=== PATIENT | female | born 1970 | race African-American/Black ===

== ENCOUNTER 2025-05-15 14:57 | Emergency (ER) | payer BC ==
[~2025-05-15] VITALS: Ht 162.6 cm; Wt 96.0 kg
[2025-05-15 15:01] VITALS: O2SAT 100
[2025-05-15] MEDS: MORPHINE SULFATE 4 MG/ML INJ (FOR IV/IM USE) IV ONE (16:00)
[2025-05-15 16:08] LABS: BASOPHILS % 0.6 % (0.0-2.0); EOSINOPHILS % 2.1 % (0.0-5.0); HEMATOCRIT. 39.3 % (36.0-48.0); HEMOGLOBIN. 13.2 g/dL (12.0-16.0); LYMPHOCYTES % 29.4 % (20.0-50.0); MEAN PLATELET VOLUME 7.9 fl (7.4-10.4); MONOCYTES % 5.6 % (2.0-8.0); NEUTROPHILS % 62.3 % (40.0-76.0); PLATELET 332 x1000/uL (130-400); RED BLOOD CELL COUNT 4.29 mill/uL (4.2-5.4); RED CELL DISTRIBUTION WIDTH 14.0 % (11.6-14.6)
[2025-05-15 16:18] LABS: CREATININE 0.8 mg/dL (0.6-1.0)
[2025-05-15 16:19] LABS: TROPONIN I HIGH SENSITIVITY < 4 ng/L (3.0-34); UREA NITROGEN BLOOD 10 mg/dL (9-23)
[2025-05-15 16:20] LABS: ASPARTATE AMINOTRANSFERASE 19 IU/L (<34); BILIRUBIN DIRECT 0.1 mg/dL (<=3.0)
[2025-05-15 16:21] LABS: BILIRUBIN TOTAL 0.5 mg/dL (0.1-1.0); PROTEIN TOTAL 7.6 g/dL (6.0-8.3)
[2025-05-15 16:30] LABS: INR 1.0
[2025-05-15] MEDS: ONDANSETRON HCL 4MG/2ML INJ IV ONE (16:37)
[2025-05-15] MEDS: FAMOTIDINE 20MG/2ML VIAL IV ONE (16:38)
[2025-05-15] MEDS: SODIUM CHLORIDE 0.9% 1,000 ML IV ONE (16:38)
[2025-05-15] MEDS ORDERED: FAMO-135 PO (18:43)
[2025-05-15 18:51] VITALS: BP 161/77; PULSE 58; RESP 12; TEMP 36.7; O2SAT 100
== END 2025-05-15 19:10 | disposition home or self-care (01) ==
LOC: ER 14:57 → CMPBEDREQ 05-16 07:30
DX: K30 Functional dyspepsia (principal); I11.9 Hypertensive heart disease without heart failure; Z90.710 Acquired absence of both cervix and uterus
CPT/HCPCS: 80076; 80048; 83690; 85025; 85610; 85730; 84484; 36415; 71045; 74176; 76705; 93005; 96361; 96374; 96375; 99285; J1308; J2405; J7030; Z7610; J2270